=== PATIENT | male | born 1945 | race Caucasian/White ===

== ENCOUNTER 2019-08-08 05:58 | Day surgery (SDC) | payer MEDICARE, OTHER ==
[~2019-08-08] VITALS: Ht 172.7 cm; Wt 94.4 kg
[~2019-08-08 05:58] MED LIST: ACID CONTROL C1 EACH; AMIO200 PO; AMLO5 PO; ASPI81CH PO; ASPI81EC PO; ATOR40TA PO; CARV3.125 PO; CARV6.25 PO; CHOL10002 PO; CLOP75 PO; COLCRYS0.6 MG PO; FAMO20 PO; FURO20 PO; ISOMON30 PO; Isosorbide Mono30 MG PO; LISI20 PO; LISI5 PO; Lopressor 25 mg25 MG PO; METO25 PO; PRAV20 PO; Prinivil10 MG PO; SPIR25 PO; TRAM50 PO; WARF2.5 PO
--- NOTE | 2019-08-08 07:09 | NUR ---
History, Chart, Medications and Allergies reviewed before start of procedure. Lungs clear T/O to Auscultation. Patient confirms NPO status and agrees with scheduled surgery. Pre-Op teaching done. Pt verbalizes understanding. Patient reports completing Chlorhexadine shower X2 prior to admission to hospital.
--- NOTE | 2019-08-08 08:29 | NUR ---
08/08/19 0829 Bhaskar Boateng CONVERTED FROM SPINAL TO GENERAL ANESTHESIA AT 0810
--- NOTE | 2019-08-08 11:39 | NUR ---
ARRIVED TO ROOM VIA GURNEY, AWAKE, A&OX3, DENIES ANY PAIN OR NAUSEA, UNABLE TO WIGGLE TOES, NO SENSATION NOTED, PT HAD SPINAL AND GEN. ANESTH. PER NIKKI PATRICIO, EDEN. HIP DRESSINGS C/D/I, ICE CHIPS AND CLEAR LIQUIDS GIVEN, MONITOR FOR ANY CHANGES, ASSIST PRN, MEDICATE FOR PAIN PRN.
--- NOTE | 2019-08-09 04:03 | NUR ---
SHIFT SUMMARY: PT POD#1 FOR R GABRIEL. BOTH AQUACELS C/D/I. POLAR PACK PLACED TO RT HIP. PAIN BEING MANAGED WITH SCHEDULED TORADOL AND TYLENOL. PT GIVEN 5MG OXYCODONE FOR BREAKTHROUGH PAIN. RATING PAIN 2-3/10. PT AMBULATING TO BATHROOM WITH SBA AND FWW. VS WNL T/O SHIFT. VOIDING AND ISABELLE PO. SALINE LOCKED. IV ABX COMPLETE.
[2019-08-09 04:31] LABS: BASOPHILS ABSOLUTE AUTO 0.03 K/mm3 (0.00-0.23); BASOPHILS PERCENT AUTO 0 % (0-2); EOSINOPHILS ABSOLUTE AUTO 0.02 K/mm3 (0.00-0.68); EOSINOPHILS PERCENT AUTO 0 % (0-6); Hematocrit 40.2 % (37.0-53.0); Hemoglobin 13.6 g/dL (13.5-17.5); IMMATURE GRAN ABSOLUTE AUTO 0.06 K/mm3 (0.00-0.10); IMMATURE GRAN PERCENT AUTO 1 % (0-1); LYMPHOCYTES ABSOLUTE AUTO 1.22 K/mm3 (0.84-5.20); LYMPHOCYTES PERCENT AUTO 9 % (21-46); MONOCYTES ABSOLUTE AUTO 1.31 K/mm3 (0.16-1.47); MONOCYTES PERCENT AUTO 10 % (4-13); Mean Corpuscular HGB 31.2 pg (26.0-34.0); Mean Corpuscular HGB Conc 33.8 g/dL (31.5-36.5); Mean Corpuscular Volume 92 fL (80-100); Mean Platelet Volume 9.9 fL (9.1-12.4); NEUTROPHILS ABSOLUTE AUTO 10.44 K/mm3 (1.96-9.15); NEUTROPHILS PERCENT AUTO 80 % (41-73); Platelet Count 166 K/mm3 (150-400); RDW Coefficient Variation 12.8 % (11.7-14.2); RDW Standard Deviation 43.1 fL (35.1-46.3); Red Blood Cell Count 4.36 M/mm3 (4.30-5.90); White Blood Cell Count 13.08 K/mm3 (4.00-11.30)
[2019-08-09 04:50] LABS: Anion Gap 6 mmol/L (6-16); Blood Urea Nitrogen 20 mg/dL (8-24); Bun/Creatinine Ratio 17.1 (12.0-20.0); CO2, Blood 26 mmol/L (21-32); Calcium, Blood 8.1 mg/dL (8.5-10.1); Chloride, Blood 106 mmol/L (98-108); Creatinine, Blood 1.17 mg/dL (0.60-1.20); Glomerular Filtration Rate >60 (60-); Glucose, Blood 122 mg/dL (70-99); Potassium, Blood 4.1 mmol/L (3.5-5.5); Sodium, Blood 138 mmol/L (136-145)
--- NOTE | 2019-08-09 07:15 | NUR ---
recvd bedside report from previous shift RN morelia, pt up in room with fww, dressed, a/o x 4, pleasant/cooperative. pt denies pain, is asking when he will be able to go home. this rn provided pt with plan for PT approval per protocol and DC following his passing PT
[2019-08-09] MEDS ORDERED: Percocet 5-3251 EACH PO (09:45)
--- NOTE | 2019-08-09 11:30 | NUR ---
physical therapy working with pt
--- NOTE | 2019-08-09 12:20 | NUR ---
provide pt with discharge instructions/educations, printed materials, written prescriptions. pt and daughter state understanding of instructions. pt transferred to awaiting vehicle via wheelchair with belongings on lap.
== END 2019-08-09 12:31 | disposition home or self-care (01) ==
LOC: ORSCMMR 05:58 → ORD 07:30 → ORSCMMR 07:30 → ORD 08:45 → SURS 11:18 → ORSCMMR 08-09 12:31
PROVIDERS: Orthopaedic Surgery
PROC: 0SR90JA Replacement of Right Hip Joint with Synthetic Substitute, Uncemented, Open Approach (ICD-10-PCS; principal; 2019-08-08 07:30)
DX: M16.11 Unilateral primary osteoarthritis, right hip (principal); I10 Essential (primary) hypertension; I48.91 Unspecified atrial fibrillation; Z79.01 Long term (current) use of anticoagulants; K21.9 Gastro-esophageal reflux disease without esophagitis; I25.2 Old myocardial infarction; I50.9 Heart failure, unspecified; Z79.899 Other long term (current) drug therapy; Z79.82 Long term (current) use of aspirin
CPT/HCPCS: 36415; 72170; 80048; 85025; 88300; 94762; 97110; 97116; 97162; 97530; A9270-GY; C1776; J0171; J0690; J0735; J1100; J1885; J2250; J2405; J2704; J2795; J3010; J7120

== ENCOUNTER 2019-10-26 01:39 | Emergency (ER) | payer MEDICARE, OTHER ==
[~2019-10-26] VITALS: Ht 172.7 cm; Wt 96.2 kg
[~2019-10-26 01:39] MED LIST changes: +Percocet 5-3251 EACH PO
[2019-10-26 02:01] LABS: BASOPHILS ABSOLUTE AUTO 0.06 K/mm3 (0.00-0.23); BASOPHILS PERCENT AUTO 1 % (0-2); EOSINOPHILS ABSOLUTE AUTO 0.04 K/mm3 (0.00-0.68); EOSINOPHILS PERCENT AUTO 0 % (0-6); Hematocrit 45.7 % (37.0-53.0); IMMATURE GRAN PERCENT AUTO 1 % (0-1); LYMPHOCYTES PERCENT AUTO 12 % (21-46); MONOCYTES ABSOLUTE AUTO 0.51 K/mm3 (0.16-1.47); MONOCYTES PERCENT AUTO 5 % (4-13); Mean Corpuscular HGB 30.9 pg (26.0-34.0); Mean Corpuscular HGB Conc 32.8 g/dL (31.5-36.5); Mean Corpuscular Volume 94 fL (80-100); NEUTROPHILS ABSOLUTE AUTO 8.27 K/mm3 (1.96-9.15); NEUTROPHILS PERCENT AUTO 81 % (41-73); Platelet Count 197 K/mm3 (150-400); RDW Coefficient Variation 13.6 % (11.7-14.2); RDW Standard Deviation 46.9 fL (35.1-46.3); Red Blood Cell Count 4.85 M/mm3 (4.30-5.90); White Blood Cell Count 10.18 K/mm3 (4.00-11.30)
[2019-10-26 02:13] LABS: Anion Gap 5 mmol/L (6-16); Blood Urea Nitrogen 13 mg/dL (8-24); Bun/Creatinine Ratio 11.9 (12.0-20.0); CO2, Blood 27 mmol/L (21-32); Calcium, Blood 8.7 mg/dL (8.5-10.1); Chloride, Blood 106 mmol/L (98-108); Creatinine, Blood 1.09 mg/dL (0.60-1.20); Glomerular Filtration Rate >60 (60-); Glucose, Blood 136 mg/dL (70-99); Potassium, Blood 4.3 mmol/L (3.5-5.5); Sodium, Blood 138 mmol/L (136-145); Troponin I <0.015 ng/mL (0.000-0.040)
[2019-10-26 02:40] LABS: Alanine Aminotransfer (ALT/SGP 33 U/L (12-78); Albumin, Blood 4.1 g/dL (3.4-5.0); Albumin/Globulin Ratio 1.2 (0.8-1.8); Alk Phos 140 U/L (50-136); Aspartate Aminotrans (AST/SGOT 27 U/L (12-37); Bilirubin, Direct 0.3 mg/dL (0.0-0.3); Bilirubin, Indirect 0.6 mg/dL (0.1-0.7); Bilirubin, Total 0.9 mg/dL (0.1-1.0); Globulin, Blood 3.5 g/dL (2.2-4.0); Total Protein, Blood 7.6 g/dL (6.4-8.2)
== END 2019-10-26 05:47 | disposition home or self-care (01) ==
LOC: ER 01:39
PROVIDERS: Student in an Organized Health Care Education/Training Program
DX: R07.9 Chest pain, unspecified (principal); R11.2 Nausea with vomiting, unspecified; I48.91 Unspecified atrial fibrillation; E78.5 Hyperlipidemia, unspecified; I10 Essential (primary) hypertension; I25.2 Old myocardial infarction; I25.810 Atherosclerosis of coronary artery bypass graft(s) without angina pectoris; Z95.1 Presence of aortocoronary bypass graft; Z79.02 Long term (current) use of antithrombotics/antiplatelets; Z79.82 Long term (current) use of aspirin; Z79.899 Other long term (current) drug therapy
CPT/HCPCS: 36415; 80048; 80076; 83690; 84484; 85025; 93005; 93010; 99285-25

== ENCOUNTER → 2022-07-16 | Outpatient (CLI) | payer MEDICARE, OTHER | END | disposition home or self-care (01) | LOC: LAB 09:16 → LAB SHORT 09:16 | DX: M79.671 Pain in right foot (principal) | CPT/HCPCS: 84550 ==

== ENCOUNTER 2023-01-25 07:31 | Day surgery (SDC) | payer MEDICARE, OTHER ==
[2023-01-25] VITALS (9 sets, daily range): BP systolic 120–167; BP diastolic 71–138
[~2023-01-25] VITALS: Ht 172.7 cm; Wt 100.0 kg
[~2023-01-25 07:31] MED LIST changes: +ALLO100 PO; -CHOL10002 PO; +ELIQUIS5 M2 PO; +ENTRESTO 97 MG1 EACH PO; +LEVOTHYROXINE100 M10 PO; +METO50ER PO; +NITR.4SL SL; +POTA10T PO; +TORS10 PO; +VITAMIN D31000 UNI1 PO
--- NOTE | 2023-01-25 11:52 | NUR ---
BILAT RADIAL SITES SOFT AND NON-TENDER PER PT. NO BLEEDING NOTED.
--- NOTE | 2023-01-25 11:52 | NUR ---
PT BACK TO RECOVERY ROOM FROM LAB. PT SITTING IN RECLINER EATING BREAKFAST. PT A&0x4.
--- NOTE | 2023-01-25 12:23 | NUR ---
PT GIVEN ICE WATER PER REQUEST. PT FINISHED EATING LUNCH.
--- NOTE | 2023-01-25 12:35 | NUR ---
PT AMBULATED TO RESTROOM W/O ASSISTANCE. PT NOW BACK IN RECLINER RESTING. REPEAT V/S. BILAT RADIAL SITES SOFT AND NON-TENDER. NO BLEEDING NOTED.
--- NOTE | 2023-01-25 12:38 | NUR ---
2CC REMOVED FROM BOTH TR BANDS. NO BLEEDING NOTED TO EITHER SITE. BOTH SITES ARE SOFT AND NON-TENDER PER PT.
--- NOTE | 2023-01-25 12:47 | NUR ---
2CC REMOVED FROM BOTH TR BANDS. NO BLEEDING NOTED. SITES SOFT AND NON-TENDER PER PT.
--- NOTE | 2023-01-25 13:01 | NUR ---
AIR REMOVED FROM BILAT RADIAL TR BANDS. -BLEEDING OR SWELLING.
--- NOTE | 2023-01-25 13:51 | NUR ---
BILAT RADIAL TR BANDS REMOVED AND PUNCTURE AREA CLEANED /C NS. BILAT DOT CLOTH DRSG PLACED AND BILAT WRIST SPLINTS REAPPLIED. PT VERBALIZED UNDERSTANDING OF WRITTEN AND VERBAL D/C INST. IV REMOVED. PT TAKEN OUT OF THE [facility]RT CENTER VIA W/C.
== END 2023-01-25 14:10 | disposition home or self-care (01) ==
LOC: MHTC 07:31
DX: I11.0 Hypertensive heart disease with heart failure (principal); I50.20 Unspecified systolic (congestive) heart failure; I25.810 Atherosclerosis of coronary artery bypass graft(s) without angina pectoris; I48.11 Longstanding persistent atrial fibrillation; E78.5 Hyperlipidemia, unspecified; K21.9 Gastro-esophageal reflux disease without esophagitis; G47.33 Obstructive sleep apnea (adult) (pediatric); I73.9 Peripheral vascular disease, unspecified; Z79.01 Long term (current) use of anticoagulants; Z79.82 Long term (current) use of aspirin; Z79.899 Other long term (current) drug therapy; Z95.1 Presence of aortocoronary bypass graft; Z99.89 Dependence on other enabling machines and devices
CPT/HCPCS: 76937; 93455; 93567; 99152; 99153; C1769; C1894; J1644; J2250; J3010; J7030; J7050; Q9967